=== PATIENT | female | born 1975 | race Caucasian/White ===

== ENCOUNTER 2017-12-28 10:57 | Emergency (ER) | payer MEDICAID ==
[2017-12-28 11:14] VITALS: BP 121/80
[2017-12-28] MEDS ORDERED: LIDOCAINE 2% VISCOUS SOLN 20 ML UDCUP PO ONE (11:36)
[2017-12-28] MEDS ORDERED: IBUPROFEN 800 MG TABLET PO ONE (11:36)
[2017-12-28] MEDS ORDERED: ONDANSETRON 4 MG TAB.RAPDIS PO ONE (11:36)
[2017-12-28] MEDS ORDERED: PENICILLIN V POTASSIUM 500 MG TABLET PO ONE (11:36)
[2017-12-28] MEDS ORDERED: ACETAMINOPHEN 325 MG TABLET PO ONE (11:36)
--- NOTE | 2017-12-28 11:39 | ER Document Report ---
HPI - HPI Patient complains to provider of: toothache, infection Onset: Other - several days Onset/Duration: Gradual, Persistent Quality of pain: Achy, Throbbing Pain Level: 5 Context: 42 yo female c/o toothache, known decay. No fever. No facial swelling. Associated Symptoms: None Exacerbated by: Denies Relieved by: Denies - ROS ROS below otherwise negative: Yes Systems Reviewed and Negative: Yes All other systems reviewed and negative Past Medical History - General Information source: Patient - Social History Smoking Status: Current Every Day Smoker Frequency of alcohol use: None Drug Abuse: None Lives with: Family Family History: Reviewed & Not Pertinent - Medical History Medical History: Negative Surgical Hx: Negative Vertical Provider Document - CONSTITUTIONAL Agree With Documented VS: Yes Exam Limitations: No Limitations General Appearance: No Apparent Distress - INFECTION CONTROL TRAVEL OUTSIDE OF THE [place] IN LAST 30 DAYS: No - HEENT HEENT: Normocephalic Notes: dental decay to pulp, lower right 1st and 2nd molar, no abscess seen, tender gindiva - NECK Neck: Supple. negative: Lymphadenopathy-Left, Lymphadenopathy-Right - RESPIRATORY O2 Sat by Pulse Oximetry: 100 - NEURO Level of Consciousness: Awake, Alert - DERM Integumentary: Warm, Dry Course - Vital Signs Vital signs: Temp Pulse Resp BP Pulse Ox 98.0 F 92 12 121/80 100 12/28/17 11:12 12/28/17 11:12 12/28/17 11:12 12/28/17 11:12 12/28/17 11:12 Discharge - Discharge Clinical Impression: Dental abscess Condition: Good Disposition: HOME, SELF-CARE Instructions: Acetaminophen, Anti-Inflammatory Medication ([facility]), Dentist, Penicillin V K ([facility]), Toothache ([facility]), Topical Lidocaine ([facility]), Warm Packs ([facility]) Additional Instructions: warm compress see the dentist to er if fever, increased swelling Prescriptions: Ibuprofen [Motrin 800 mg Tablet] 800 mg PO Q8HP PRN #30 tablet PRN Reason: Penicillin V Potassium [Penicillin Vk 500 mg Tablet] 500 mg PO QID #40 tablet
== END 2017-12-28 12:20 | disposition home or self-care (01) ==
LOC: ER 10:57
DX: K04.7 Periapical abscess without sinus (principal); K08.89 Other specified disorders of teeth and supporting structures; F17.200 Nicotine dependence, unspecified, uncomplicated
CPT/HCPCS: 99282; J3490 ×4; S0119